=== PATIENT | female | born 1985 | race Caucasian/White ===

== ENCOUNTER 2016-04-30 02:42 | Day surgery (SDC) | payer OTHER ==
[~2016-04-30] VITALS: Ht 179.1 cm; Wt 95.0 kg
[~2016-04-30 02:42] MED LIST: ALBU8.5H2 INHALATION; ALPR1TAB7 PO; ALPR2TAB6 PO; GUAI120L57 PO; OXYC30TA48 PO; VARE1TAB21 PO
[2016-04-30 09:00] VITALS: BP 116/70; PULSE 85; RESP 16; O2SAT 95
--- NOTE | 2016-04-30 09:00 | NUR ---
PT HERE FOR THYROGEN INJECTION
[2016-04-30] MEDS ORDERED: Thyrotropin 0.9 mg/mL Inj IM ONE (09:15)
--- NOTE | 2016-04-30 10:20 | NUR ---
INJECTION GIVEN AT 1020, RIGHT GLUTEAL. TO RETURN TOMORROW FOR DOSE #2
== END 2016-04-30 23:59 ==
LOC: SOUO 02:42
DX: C73 Malignant neoplasm of thyroid gland (principal)
CPT/HCPCS: 96372; J3240

== ENCOUNTER 2016-05-01 00:27 | Day surgery (SDC) | payer OTHER ==
[2016-05-01] MEDS ORDERED: Thyrotropin 0.9 mg/mL Inj IM ONE (09:15)
== END 2016-05-01 23:59 | disposition home or self-care (01) ==
LOC: SOUO 00:27
DX: C73 Malignant neoplasm of thyroid gland (principal)
CPT/HCPCS: 96372; J3240